=== PATIENT | female | born 1990 | race Caucasian/White ===

== ENCOUNTER 2020-01-27 14:39 | Outpatient (CLI) | payer OTHER, SELFPAY ==
--- NOTE | 2020-02-02 17:53 | WPDHOLTEREM ---
Holter/Event Monitor Holter/Event Monitor Date of procedure: 02/02/20 Procedure Type: 48 hour Holter monitor Diagnosis: palpitations Indications: palpitations Image/Tracing Quality: Acceptable Finding: this is a 48 hour Holter monitor which the underlying rhythm was sinus with sinus arrhythmia with an average heart rate of 86 beats per minute minimum of 54 beats per minute occurring at 3:50 a.m. and a maximum of 132 beats per minute occurring at 7:16 a.m.. There is no ventricular ectopy noted throughout the study. Rare supraventricular ectopy noted with 1 atrial pair and 4 premature atrial contractions. There is no atrial fibrillation, atrial flutter, prolonged pauses or high-grade AV blocks identified. OH and QRS duration were within normal limits throughout the study. Review patient's symptom diary entries note at 3:45 p.m. pt complained of chest pain while walking to the car associated sinus rhythm without ectopy heart rate 91 beats per minute. 11:49 a.m. patient complained of increased heart rate socially of sinus rhythm heart rate 81 beats per minute without ectopy. 1229 patient complained of increased heart rate so she was sinus rhythm heart rate 85 beats per minute and 1:09 p.m. patient complained of increased heart rate associated 94 beats per minute all in association with a dental visit. As 6:38 p.m. patient complained of dizziness getting up from bed associated sinus rhythm heart rate 69 beats per minute without ectopy. Conclusion: unremarkable Holter monitor with underlying sinus rhythm and sinus arrhythmia with very rare supraventricular ectopy in the form of isolated premature atrial contractions, 1 atrial pair without atrial fibrillation, atrial flutter, prolonged pauses or high-grade AV blocks. Patient's symptoms correspond with sinus rhythm. Clinical correlation advised.
== END 2020-01-27 14:40 | disposition home or self-care (01) ==
PROVIDERS: PCP Family Medicine; Visit Provider Family Medicine
DX: R00.2 Palpitations (principal)
CPT/HCPCS: 93225; 93226

== ENCOUNTER 2020-02-24 14:24 | Outpatient (CLI) | payer OTHER, SELFPAY ==
--- NOTE | 2020-02-24 | ECHO_ITS ---
Patient Info Name: Liss Garsia Age: 29 years : 1990 Gender: Female Ht: 62 in Wt: 110 lbs BSA: 1.48 m2 HR: 71 bpm BP: 114 / 93 mmHg Heart Rhythm: Sinus Rhythm Technical Quality: Good Exam Date: 02/24/2020 2:48 PM Exam Location: [facility] Patient Status: Outpatient Admit Date: 02/24/2020 Staff Ordering Physician: Sunni, Drea Ramachandran MD Wheel Tuner: Josh Albright RDCS Attending Provider: Sunni, Drea Ramachandran MD Referring Physician: Sunni FIGUEROA; Exam Type: CA echo doppler color flow Study Info Indications R00.2 - Palpitations Complete two-dimensional, color flow and Doppler transthoracic echocardiogram is performed. History/Risk Factors Palpitations. Summary 1. Complete two-dimensional, color flow and Doppler transthoracic echocardiogram is performed. 2. Left ventricular systolic function is normal, estimated at 65-70%. 3. There is no increased left ventricular wall thickness. 4. The left ventricular diastolic function is normal. 5. There is no aortic valve stenosis. 6. There is no mitral valve regurgitation. 7. There is trace tricuspid valve regurgitation. 8. No pulmonary hypertension, estimated pulmonary arterial systolic pressure is 22 mmHg. 9. There is straightening of the anterior and posterior leaflets without prolapse. Left Ventricle Left ventricular chamber dimension is normal. Left ventricular systolic function is normal, estimated at 65-70%. There is no increased left ventricular wall thickness. The left ventricular diastolic function is normal. Right Ventricle Right ventricular chamber dimension is normal. Right ventricular systolic function is normal. Left Atria Left atrial chamber dimension is normal. Right Atria Right atrial chamber dimension is normal. Aortic Valve The aortic valve is trileaflet. There is no aortic valve stenosis. There is trace aortic valve regurgitation. Pulmonic Valve The pulmonic valve is not well visualized. Mitral Valve The mitral valve has normal leaflets. There is no mitral valve regurgitation. There is straightening of the anterior and posterior leaflets without prolapse. Tricuspid Valve The tricuspid valve leaflets are normal. There is trace tricuspid valve regurgitation. No pulmonary hypertension, estimated pulmonary arterial systolic pressure is 22 mmHg. Pericardium/Pleural The pericardium appears normal. There is no pericardial effusion. Inferior Vena Cava Normal inferior vena cava with >50% collapse upon inspiration consistent with normal right atrial pressure, 5 mmHg. Aorta The aortic root size at the sinus of Valsalva is normal. Left Ventricular Outflow Tract Name Value Normal LVOT 2D LVOT Diameter 1.8 cm LVOT Doppler LVOT Peak Gradient 5 mmHg LVOT Mean Gradient 3 mmHg LVOT VTI 21 cm LVOT VTI/AV VTI Ratio 0.8 LVOT Stroke Volume 54 ml LVOT CO 5.3 l/min LVOT CI
== END 2020-02-24 14:25 | disposition home or self-care (01) ==
PROVIDERS: PCP Family Medicine; Visit Provider Family Medicine
DX: R00.2 Palpitations (principal)
CPT/HCPCS: 93306

== ENCOUNTER 2020-06-17 14:28 | Emergency (ER) | payer OTHER, SELFPAY ==
[2020-06-17 15:10] VITALS: BP 145/92; PULSE 98; RESP 18; TEMP 36.9; O2SAT 96
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
== END 2020-06-17 16:45 | disposition home or self-care (01) ==
LOC: ANHED 16:50
PROVIDERS: Emergency Provider Emergency Medicine; PCP Family Medicine
DX: R51.9 Headache, unspecified (principal); V49.40XA Driver injured in collision with unspecified motor vehicles in traffic accident, initial encounter
CPT/HCPCS: 99282

== ENCOUNTER 2021-05-19 11:55 | Emergency (ER) | payer OTHER, SELFPAY ==
--- NOTE | ~2021-05-19 | CT_ITS ---
EXAMINATION: CT abdomen pelvis w con EXAM DATE: 05/19/2021 13:34 INDICATION: Right upper quadrant pain. TECHNIQUE: Spiral CT of the abdomen and pelvis was performed following intravenous injection of 100 m L Omnipaque 350. Axial, coronal and sagittal images of the abdomen and pelvis were reviewed. The do se-length product (DLP) for this examination was 178.93 mGy-cm. The exposure was tailored according to patient size (auto mA exposure control), and iterative reconstruction (ASIR) was used as additiona l dose reduction technique. There is no prior study for comparison. FINDINGS: The liver, spleen, adrenal glands and pancreas are unremarkable. Gallbladder is unremarkab le. No biliary obstruction. There is severe right-sided hydronephrosis with renal cortical thinning . There is moderate left-sided hydronephrosis. No evidence of genitourinary calcifications. 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 The uterus is anteverted and mor phologically normal. There is 2.5 cm right ovarian cystic lesion likely the dominant follicle. The b ladder is unremarkable. There is no retroperitoneal or pelvic lymphadenopathy. Appendix positively identified, indicated on axial image 106, normal. The stomach and small bowel ar e unremarkable. There is moderate amount of colonic stool. No free intraperitoneal gas. The hear t is normal in size. There are no pericardial or pleural effusions. The lung bases are unremarkable . There are no osteoblastic or osteolytic lesions identified. IMPRESSION: 1. 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 consult. 2. Small right ovarian lesion most likely physiologic follicle. 3. Unremarkable appendix and gallbladder. Reviewed, dictated and finalized at location A. IMPRESSION: 1. Severe right, moderate left hydronephrosis probably bilateral congenital pa rtial UPJ obstructions. consult. 2. Small right ovarian lesion most likely physiologic follicle. 3. Unremarkable appendix and gallbladder.
[2021-05-19 12:06] VITALS: BP 126/81; PULSE 94; RESP 18; TEMP 36.7; O2SAT 100
[2021-05-19 12:21] LABS: Basophils Percent Auto 0.7 % (0.2-1.2); Eosinophils Absolute Auto 0.1 K/mm3 (0-0.3); Hematocrit 43.2 % (37.0-47.0); Hemoglobin 14.6 g/dL (12.0-15.0); Immature Granulocyte Absolute 0.01 K/mm3 (0.00-0.031); Immature Granulocyte Percent A 0.2 % (0-0.5); Lymphocytes Absolute Auto 1.67 K/mm3 (0.9-3.2); Lymphocytes Percent Auto 27.3 % (18.3-44.2); Mean Corpuscular HGB Conc 33.8 g/dl (32-36); Mean Corpuscular Hemoglobin 30.9 pg (26-34); Mean Corpuscular Volume 91.5 fl (80-100); Mean Platelet Volume 10.6 fl (7.4-10.4); Monocytes Absolute Auto 0.3 K/mm3 (0.1-0.6); Monocytes Percent Auto 4.4 % (2.6-8.5); Neutrophils Absolute Auto 4.1 K/mm3 (1.3-6.7); Neutrophils Percent Auto 66.4 % (45.5-73.1); Platelet Count Result 244 k/mm3 (150-375); Red Blood Count 4.72 M/mm3 (4.2-5.4); White Blood Count 6.1 K/mm3 (4.5-10.0)
--- NOTE | 2021-05-19 12:23 | ED.ABDPAIN ---
HPI - Abdominal Pain General Chief Complaint: Abdominal Pain Stated Complaint: abd pain Time Seen by Provider: 05/19/21 12:18 Source: patient and RN notes reviewed Mode of arrival: ambulatory Limitations: no limitations History of Present Illness HPI narrative: Patient is 30 years old white female presented to the ED with sudden onset of right abdominal pain, tightness intermittent since activities coordinator. Patient been having similar symptoms over the last 11 years but is getting worse over the last 2 weeks, mainly today. Patient denies any fever, chills, nausea, vomiting, diarrhea, constipation, urinary symptoms, vaginal bleeding or discharge. Related Data Allergies Allergy/AdvReac Type Severity Reaction Status Date / Time venom-wasp Allergy Anaphylaxis Verified 05/19/21 12:45 Review of Systems Review of Systems: CONSTITUTIONAL: Denies fever, chills, or sweats. EYES: Denies visual changes, redness, or discharge. ENT: Denies rhinorrhea, congestion, sore throat, or otalgia. CARDIOVASCULAR: Denies chest pain, palpitations, or edema. RESPIRATORY: Denies cough or dyspnea. GASTROINTESTINAL: Denies abdominal pain, nausea, vomiting, or diarrhea. GENITOURINARY: Denies dysuria or hematuria. SKIN: Denies rash or itching. MUSCULOSKELETAL: Denies back pain, joint pain, or myalgia. NEUROLOGIC: Denies headache, numbness, or weakness. PSYCHIATRIC: Denies anxiety or depression. PMFSH Social History Social History Smoking status: Never smoker Exam Narrative: General appearance: Well-developed, well-nourished Skin: Normal color Head: Normocephalic, nontraumatic Eyes: Clear conjunctiva ENT: Oropharynx normal, ears normal, nose normal Neck: Supple, nontender Chest and respiratory: Airway patent, no respiratory distress, no accessory muscle use Heart: Regular rate/rhythm Abdomen: Soft, nontender, no organomegaly, quiet bowel sounds Vascular: Normal peripheral pulses, normal capillary refill. 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 Kenia Medrano likely have chronic bilateral obstruction, patient needs renal scan as outpatient, call the office Saturday for appointment Date: 05/19/21 Time: 14:51 Vital Signs Vital signs: Vital Signs Temperature 36.7 C 05/19/21 12:06 Pulse Rate 94 05/19/21 12:06 Respiratory Rate 18 05/19/21 12:06 Blood Pressure 126/81 05/19/21 12:06 Pulse Oximetry 100 05/19/21 12:06 Temperature 36.3 C L 05/19/21 13:00 Pulse Rate 72 05/19/21 13:00 Respiratory Rate 16 05/19/21 13:00 Blood Pressure 120/68 05/19/21 13:00 Pulse Oximetry 100 05/19/21 13:00 MDM - Abdominal Pain Lab Data Result diagrams: 05/19/21 12:09 05/19/21 12:09 Labs: Lab Results 05/19/21 05/19/21 05/19/21 Range/Units 12:09 12:09 12:14 WBC 6.1 (4.5-10.0) K/mm3 RBC 4.72 (4.2-5.4) M/mm3 Hgb 14.6 (12.0-15.0) g/dL Hct 43.2 (37.0-47.0) % MCV 91.5 (80-100) fl MCH 30.9 (26-34) pg MCHC 33.8 (32-36) g/dl RDW 12.0 (11.5-14.5) % Plt Count 244 (150-375) k/mm3 MPV 10.6 H (7.4-10.4) fl Immature Gran % (Auto) 0.2 (0-0.5) % Neut % (Auto) 66.4 (45.5-73.1) % Lymph % (Auto) 27.3 (18.3-44.2) % Robeson % (Auto) 4.4 (2.6-8.5) % Eos % (Auto) 1.0 (0-4.4) % Baso % (Auto) 0.7 (0.2-1.2) % Lymph # (Auto) 1.67 (0.9-3.2) K/mm3 Robeson # (Auto) 0.3 (0.1-0.6) K/mm3 Eos # (Auto) 0.1 (0-0.3) K/mm3 Baso # (Auto) 0.0 (0.0-0.1) K/mm3 Abs Immat Gran (aut
[2021-05-19 12:26] LABS: Add Urine Microscopic? YES; Appearance Urine Cloudy (Clear); Bacteria Urine Trace /hpf; Bilirubin Urine Negative (Negative); Blood Urine 1+ (Negative); Color Urine Yellow (Yellow); Glucose Urine UA Negative (Negative); Ketones Urine Negative (Negative); Leukocyte Esterase Ur Trace LEU/UL (Negative); Mucus Urine Rare /lpf; Nitrate Urine Negative (Negative); Protein Urine Negative (Negative); Specific Grav Ur 1.017 (1.001-1.035); Squamous Epithelial Cell Urine Rare /hpf (Few); Urobilinogen Urine Negative mg/dL (<2.0); WBC Urine 0-3 /hpf
[2021-05-19 12:31] LABS: Alanine Aminotransferase 14 U/L (4-35); Albumin Level 4.4 g/dL (3.5-5.1); Alkaline Phosphatase 73 U/L (38-126); Anion Gap 7 mmol/L (8-16); Aspartate Amino Transferase 22 U/L (14-36); Bilirubin,Total 0.3 mg/dL (0.2-1.3); Blood Urea Nitrogen 11 mg/dL (7-17); Calcium 9.2 mg/dL (8.4-10.2); Carbon Dioxide 26 mmol/L (22-30); Chloride 105 mmol/L (98-107); Estimated CRCL calculation 81 ml/min; Estimated Glomerular Filt Rate > 60; Glucose 88 mg/dL (65-110); Lipase 51 U/L (23-300); Potassium 3.6 mmol/L (3.4-5.0); Sodium 138 mmol/L (137-145)
--- NOTE | 2021-05-19 12:50 | PC.NURSE ---
pt refused IV medications. Pt denies any pain or nausea, reports eating and drink good and does not feel she needs this medications
[2021-05-19 13:00] VITALS: BP 120/68; PULSE 72; RESP 16; TEMP 36.3; O2SAT 100
[2021-05-19 14:00] VITALS: BP 118/74; PULSE 72; RESP 16; TEMP 36.3; O2SAT 98
[2021-05-19 14:54] VITALS: BP 118/68; PULSE 70; RESP 16; TEMP 36.3; O2SAT 100
== END 2021-05-19 15:15 | disposition home or self-care (01) ==
PROVIDERS: Emergency Medicine; Emergency Provider Emergency Medicine; PCP Family Medicine
DX: Q62.0 Congenital hydronephrosis (principal); N83.9 Noninflammatory disorder of ovary, fallopian tube and broad ligament, unspecified
CPT/HCPCS: 36415; 74177; 80053; 81001; 81025; 83690; 85025; 99284; Q9967

== ENCOUNTER 2021-05-31 13:21 | Outpatient (CLI) | payer OTHER, SELFPAY ==
--- NOTE | ~2021-05-31 | NM_ITS ---
EXAMINATION: LUIS carbajal renal scan DATE: 05/31/2021 14:40 INDICATION: Bilateral hydronephrosis. TECHNIQUE: 8 mCi Tc-99m MAG3 was administered IV. 40 mg furosemide was administered IV immediately a fterward. The patient was scanned in the supine position. A posterior abdominal radionuclide angiogra m was obtained. A subsequent time course of static images of the kidneys, ureters, and bladder was ob tained. COMPARISON: None FINDINGS: The posterior abdominal radionuclide angiogram and sequential static images show normal size, positio n, and morphology of the left kidney. The right kidney is small.. Peak renal parenchymal uptake was 3 .5 min in left kidney and >30 min in right kidney (normal peak 3-5 minutes). The relative early sharri l uptake was 84% on the left and 16% on the right (<40% is abnormal). No abnormalities of the ureter s or bladder are seen. T1/2 for clearance of activity from the left kidney and proximal collecting system was 8 minutes. T1/2 for clearance of activity from the right kidney and proximal collecting system was indeterminate with continually rising activity curves throughout the 30 minutes of imaging. Notes on interpretation: T1/2 <10 minutes is normal, 10-15 minutes is low grade obstruction of questi onable clinical significance, 15-20 minutes is partial obstruction that is likely clinically signific ant, >20 minutes is high grade obstruction. Note that false positives may be seen with supine positio tobi, dehydration, severely dilated nonobstructed kidney, atonic collecting system, poor renal functi on, and chronic furosemide use. IMPRESSION: 1. Markedly delayed activity clearance from the small right kidney with hydronephrosis consistent wi th high-grade obstruction. This likely chronic given the significant renal parenchymal atrophy seen o n the prior CT with severe asymmetric decreased relative renal function the right kidney contributing only 16% of total renal function. 2. Normal clearance from the left kidney with no significant obstruction. Reviewed, dictated and finalized at location A. IMPRESSION: 1. Markedly delayed activity clearance from the small right kidney with hydron ephrosis consistent with high-grade obstruction. This likely chronic given the significant renal parenchymal atrophy seen on the prior CT with severe asymmetr ic decreased relative renal function the right kidney contributing only 16% of total renal function. 2. Normal clearance from the left kidney with no significant obstruction.
== END 2021-05-31 13:22 | disposition home or self-care (01) ==
LOC: ANHIMG 13:28
PROVIDERS: PCP Family Medicine; Visit Provider Nurse Practitioner Adult Health
DX: N13.30 Unspecified hydronephrosis (principal)
CPT/HCPCS: 78708; A9562; J1940

== ENCOUNTER 2021-06-06 00:53 | Day surgery (SDC) | payer OTHER, SELFPAY ==
[2021-06-01 11:36] VITALS: BMI 21.0
--- NOTE | 2021-06-01 11:48 | PC.NURSE ---
Report to the Outpatient Waiting Room, entrance under the green pavilion located off [facility], at time 0800 on date 06/06/21. OR Time: 1000. - You and your visitor will be asked a series of questions to screen for COVID 19 for your protection. - A mask is required within the hospital. One visitor will be allowed to accompany the patient into the hospital. Patients visitor will be instructed to remain with patient at all times or leave the building. We will allow the visitor to come back to the postoperative area when patient is ready. Preoperative COVID Testing Requirements: No COVID Test needed if: (proof is required; if not received patient will have Rapid Test prior to entry) - Patient has received COVID Vaccine at least 14 days prior to procedure date or - Patient has positive COVID test result within last 90 days of surgery date. COVID Test needed if above criteria is not met Patients may have clear liquids (water, carbonated beverages, clear teas, apple juice) until 3 hours prior to surgery with a maximum of 20 ounces. - No food from midnight until time of surgery - Infants may have breast milk until 4 hours before surgery, formula 6 hours prior to surgery. - Children will be allowed to drink immediately following surgery. If applicable, please bring a bottle or sippy cup to assist with drinking. Juice, water, soda, and popsicles are readily available. For infants on formula, please bring formula the day of surgery. Pacifiers are allowed. Take the following medications with a SIP of water the morning of surgery: PAIN PILL (IF NEEDED) Medications to discontinue per physician: VITAMINS/SUPPLEMENTS Date to take last dose: 06/02/21 Please no make-up, nail bengali, hairspray, perfume, deodorant, or body powder the day of surgery. No jewelry (including any body piercings) or valuables the day of surgery, leave them at home. Please take a shower or bath the night before, or the morning of, surgery with an antibacterial soap. Wear comfortable, loose fitting clothing. - Jewelry must be removed prior to entering the operating room. Rings and piercings that are not removed may be cut off. - The hospital will not accept responsibility for valuables. - Please leave all valuables, including medications, at home the day of surgery. If you are going home after surgery, a licensed drop hammer pile driver operator must drive you home. - NO public transportation without another adult. - We recommend that an adult stay with you for 24 hours following discharge. - We also recommend that you do not drive, make important decision, drink alcoholic beverages, or take any drugs that were not prescribed by your health care provider for at least 24 hours after your discharge time. Follow any additional instructions given to you from your surgeon. Telephone instructions given to LESLEY MELGAR and asked if any additional questions and then verbalized understanding. Patient advised to call surgeon office or pre surgery nurse liaison [phone] if any additional questions.
[2021-06-06] VITALS (8 sets, daily range): BP systolic 98–135; BP diastolic 60–96; PULSE 80–101; RESP 15–19; TEMP 36.8–36.9; O2SAT 98–100
--- NOTE | ~2021-06-06 | XR_ITS ---
EXAMINATION: XR retrograde pyelo w/stent BI DATE: 06/06/2021 10:56 INDICATION: Bilateral retrograde pyelograms and right ureteral stent placement. TECHNIQUE: 4 fluoroscopic images of the abdomen and pelvis were obtained during procedure performed b andree Aquino. Radiologist was not present for the imaging or procedure. The amount of fluoroscopy t fredis used during this procedure was 1.6 minutes. COMPARISON: None. FINDINGS: Retrograde contrast injections into the left ureter demonstrates moderate left hydronephrosis along w ith an approximately 4 cm stricture along the proximal left ureter with smooth mucosal margins. Subse quent images demonstrate severe right hydronephrosis with likely UPJ obstruction. Final images demons trate placement of a left internal ureteral stent with loops formed in the dilated right renal pelvis and in the bladder. IMPRESSION: 1. Severe right hydronephrosis likely due to UPJ obstruction with placement of a right internal urete ral stent in expected position. 2. Moderate left hydronephrosis with significant stricture along the proximal left ureter. Reviewed, dictated and finalized at location B. IMPRESSION: 1. Severe right hydronephrosis likely due to UPJ obstruction with placement of a right internal ureteral stent in expected position. 2. Moderate left hydronephrosis with significant stricture along the proximal l eft ureter.
--- NOTE | 2021-06-06 07:53 | WPDANESEPPF ---
Anes - Initial Pre Proc Eval Procedure: Operation Date: 06/06/21 10:00 Proposed Procedures p Cystoscopy, Bilateral Retrograde Pyelograms, Right Stent Placement, Diagnostic Ureteroscopy - Venkata Aquino MD Date/Time: 06/06/21 07:53 Surgeon: Venkata Aquino MD Pre Op Diagnosis: Gautam Hydronephrosis Patient Data Age: 30 Gender: F Height: 1.57 m Weight: 52.16 kg Allergies Allergy/AdvReac Type Severity Reaction Status Date / Time venom-wasp Allergy Severe Anaphylaxis Verified 06/06/21 08:12 Home Medications Medication Instructions Recorded Confirmed Type tramadol 50 mg PO Q4H PRN #30 tablet 05/19/21 06/06/21 Rx cholecalciferol (vitamin D3) 50 mcg PO DAILY 06/01/21 06/06/21 History [Vitamin D3] multivitamin 1 tablet PO DAILY 06/01/21 06/06/21 History norgestimate-ethinyl estradiol 1 tablet PO DAILY 06/01/21 06/06/21 History [Tri-Estarylla] vitamin B complex 1 tablet PO DAILY 06/01/21 06/06/21 History Patient hx anesthesia problems: none Family hx anesthesia problems: none Results Review: All pre-operative results and documents have been reviewed as part of the pre-operative evaluation. [facility] Past Medical History Medical History (Updated 06/06/21 @ 07:54 by Clinton Quinn MD) Hypothyroidism Social History Social History Smoking status: Never smoker Alcohol intake: never Substance use: current Substance use type: marijuana Living arrangements: alone Spiritual care concerns: No Anes - Eval Final PreProcedure Day of Procedure 06/06/21 07:53 Patient weight: normal Heart: regular rate and rhythm Lungs: clear to auscultation and normal air movement Airway: Mallampati scale class II Neurological: alert and oriented Last oral intake: >/= 8 hours ASA classification: II Emergent: no Anesthetic plan: proceed Anesthesia type and monitoring: general LMA Results Review: All pre-operative results and documents have been reviewed as part of the pre-operative evaluation. Informed Consent: The patient's anesthetic plan and its attendant risks and benefits were discussed with the patient/family/POA. Questions were solicited and answers provided to the satisfaction of the patient/family/POA.
[2021-06-06] MEDS: LACTATED RINGERS 1,000 ML 30 ML IV CONT (08:39)
--- NOTE | 2021-06-06 09:47 | WPDHPUPDATE1 ---
History and Physical Update Update Date/Time: 06/06/21 09:47 History and Physical has been reviewed, including an updated exam of the patient. There are NO changes in the patient's condition. Risks, benefits, and alternatives have been discussed and questions answered. Patient agrees to proceed with procedure. Proceed with cystoscopy, bilateral retrogrades, right ureteral stent placement
[2021-06-06] MEDS: ceFAZolin 2 GM/D5W 50 ML 2 GM/50 ML BAG IVPB (10:10)
--- NOTE | 2021-06-06 10:52 | P.OP_ITS ---
Procedure Note - Detailed Date of Procedure 06/06/21 Pre-op Diagnosis Gautam Hydronephrosis Post-op Diagnosis Same Procedure Performed Cystoscopy, bilateral retrograde pyelograms, right ureteral stent placement 4.8 Sammarinese contour Surgeon Venkata Aquino MD Anesthesia General Findings Some mild narrowing along the proximal left ureter, right UPJ obstruction, Description of Procedure Patient is taken to the operative suite and correctly identified. Once anes thesia was obtained patient was prepped draped usual sterile fashion. Twenty- two Sammarinese scope was inserted in the bladder. There were no tumors noted. Left orifice was cannulated with a [place] and a pyelogram was performed. Contrast made its way up easily to left renal pelvis. There is a segment of what appears to be some narrowing in the proximal ureter for approximately 3 cm. This does not have the classic appearance of a UPJ. Renal scan shows good drainage from that kidney. Right retrograde pyelogram was then performed. This does have the appearance of a classic UPJ. The collecting system was extremely dilated. We needed to manipulated an angled Glidewire up into the renal pelvis and advanced the [place]. Superstiff guidewire was then placed. We were unable to place a 6 Sammarinese contour stent due to the tightness. We thus placed a 4.8 Sammarinese contour stent with the proximal end coiled in the renal pelvis and the distal end in the bladder. 2% viscous lidocaine was inserted urethra patient is taken recovery room stable condition. Will plan on renal scan in 6-8 weeks to see if function has improved in the right kidney. Drains Yes Packing No Pathology None sent Complications No immediate complications Condition Stable Disposition PACU
[2021-06-06] MEDS: oxyCODONE HCL (*CRX) 5 MG TAB IR PO (12:09)
== END 2021-06-06 12:50 | disposition home or self-care (01) ==
PROVIDERS: PCP Family Medicine; Visit Provider Urology
PROC: (CPT 52352; principal; 2021-06-06 10:00)
DX: N13.1 Hydronephrosis with ureteral stricture, not elsewhere classified (principal); E03.9 Hypothyroidism, unspecified; F12.90 Cannabis use, unspecified, uncomplicated
CPT/HCPCS: 52332; 52005; 74420; A9270; C1758; C1769; C2617; J0690; J1100; J2250; J2405; J2704; J3010; J7120; Q9966

== ENCOUNTER 2021-08-02 12:24 | Outpatient (CLI) | payer OTHER, SELFPAY ==
--- NOTE | ~2021-08-02 | NM_ITS ---
EXAMINATION: LUIS carbajal renal scan DATE: 08/02/2021 14:15 INDICATION: Bilateral hydronephrosis TECHNIQUE: 8 mCi Tc-99m MAG3 was administered IV. 40 mg furosemide was administered IV immediately a fterward. The patient was scanned in the supine position. A posterior abdominal radionuclide angiogra m was obtained. A subsequent time course of static images of the kidneys, ureters, and bladder was ob tained. COMPARISON: None FINDINGS: The posterior abdominal radionuclide angiogram and sequential static images show normal size, positio n, and morphology of the left kidney. The right kidney is small. Peak renal parenchymal uptake was 1. 9 min in left kidney and 10.5 min in right kidney (normal peak 3-5 minutes). The relative early sharri l uptake was 86% on the left and 14% on the right (<40% is abnormal). No abnormalities of the ureter s or bladder are seen. T1/2 for clearance of activity from the left kidney and proximal collecting system was 10.6 minutes. T1/2 for clearance of activity from the right kidney and proximal collecting system was 26.3 minutes. Notes on interpretation: T1/2 <10 minutes is normal, 10-15 minutes is low grade obstruction of questi onable clinical significance, 15-20 minutes is partial obstruction that is likely clinically signific ant, >20 minutes is high grade obstruction. Note that false positives may be seen with supine positio tobi, dehydration, severely dilated nonobstructed kidney, atonic collecting system, poor renal functi on, and chronic furosemide use. IMPRESSION: 1. Persistent severely decreased activity clearance from the small right kidney which contributes on ly 14% to total renal function. This could be due to persistent high-grade obstruction, dilated atoni c collecting system, poor renal function or some combination thereof. 2. Minimally delayed left renal activity clearance consistent with low grade obstruction of question able clinical significance. Reviewed, dictated and finalized at location B. IMPRESSION: 1. Persistent severely decreased activity clearance from the small right kidne y which contributes only 14% to total renal function. This could be due to pers istent high-grade obstruction, dilated atonic collecting system, poor renal fun ction or some combination thereof. 2. Minimally delayed left renal activity clearance consistent with low grade o bstruction of questionable clinical significance.
== END 2021-08-02 12:25 | disposition home or self-care (01) ==
PROVIDERS: PCP Family Medicine; Visit Provider Urology
DX: N13.30 Unspecified hydronephrosis (principal)
CPT/HCPCS: 78708; A9562

== ENCOUNTER 2022-04-06 06:45 | Outpatient (CLI) | payer OTHER, SELFPAY | END 2022-04-06 06:46 | disposition home or self-care (01) | PROVIDERS: PCP Family Medicine; Visit Provider Internal Medicine Endocrinology, Diabetes & Metabolism | DX: R94.8 Abnormal results of function studies of other organs and systems (principal) | CPT/HCPCS: 36415; 82533; 96372; J0834 ==

== ENCOUNTER 2022-04-17 14:15 | Emergency (ER) | payer OTHER, SELFPAY ==
--- NOTE | ~2022-04-17 | CT_ITS ---
EXAMINATION: CT abdomen pelvis w con DATE: 04/17/2022 17:05 INDICATION: right side abdominal pain TECHNIQUE: Computed tomography (CT) of the abdomen and pelvis was performed with 100 mL Omnipaque-350 intravenous contrast. Automated exposure control and iterative reconstruction technique were employe d. The dose-length product was 199.96 mGy-cm. COMPARISON: None. FINDINGS: Lower thorax: Unremarkable Liver: Normal. Biliary/Gallbladder: Gallbladder is normal. No bile duct dilation. Pancreas: No mass or duct dilation. Spleen: Normal. Adrenals:No mass. Kidneys: No suspicious mass. Nonobstructing left midpole calcification. Moderate left and severe righ t pelvicaliectasis, unchanged. Right renal cortical thinning. GI tract: Distal esophageal and gastric wall edema. No small or large bowel dilation. Normal appendix . Mesentery/Peritoneum: No ascites, mass, or free air. Retroperitoneum: No mass. Pelvis: Pelvic organs are within normal limits. Soft Tissues: Soft tissues and body wall unremarkable. Bones: No acute osseous finding. IMPRESSION: Esophagitis/gastritis. Otherwise no acute abdominopelvic process detected. 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 Reviewed, dictated and finalized at location K. SCRUBBER OPERATOR IMPRESSION: Esophagitis/gastritis. Otherwise no acute abdominopelvic process detected. 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
[2022-04-17 14:17] VITALS: BP 154/104; PULSE 93; RESP 18; TEMP 36.7; O2SAT 100
[2022-04-17 14:35] LABS: Basophils Absolute Auto 0.1 K/mm3 (0.0-0.1); Basophils Percent Auto 0.7 % (0.2-1.2); Eosinophils Absolute Auto 0.2 K/mm3 (0-0.3); Eosinophils Percent Auto 2.6 % (0-4.4); Hematocrit 44.8 % (37.0-47.0); Hemoglobin 15.3 g/dL (12.0-15.0); Immature Granulocyte Absolute 0.02 K/mm3 (0.00-0.031); Immature Granulocyte Percent A 0.3 % (0-0.5); Lymphocytes Absolute Auto 2.15 K/mm3 (0.9-3.2); Lymphocytes Percent Auto 30.8 % (18.3-44.2); Mean Corpuscular HGB Conc 34.2 g/dl (32-36); Mean Corpuscular Hemoglobin 30.8 pg (26-34); Mean Corpuscular Volume 90.3 fl (80-100); Monocytes Absolute Auto 0.5 K/mm3 (0.1-0.6); Monocytes Percent Auto 6.6 % (2.6-8.5); Neutrophils Absolute Auto 4.1 K/mm3 (1.3-6.7); Platelet Count Result 256 k/mm3 (150-375); Red Blood Count 4.96 M/mm3 (4.2-5.4); Red Cell Distribution Width 11.9 % (11.5-14.5)
[2022-04-17 14:46] LABS: Alanine Aminotransferase 24 U/L (6-35); Albumin Level 4.6 g/dL (3.5-5.1); Alkaline Phosphatase 78 U/L (38-126); Anion Gap 6 mmol/L (8-16); Aspartate Amino Transferase 29 U/L (14-36); Bilirubin,Total 0.4 mg/dL (0.2-1.3); Blood Urea Nitrogen 11 mg/dL (7-17); Calcium 9.4 mg/dL (8.4-10.2); Carbon Dioxide 29 mmol/L (22-30); Chloride 102 mmol/L (98-107); Estimated CRCL calculation 80 ml/min; Estimated Glomerular Filt Rate > 60; Glucose 90 mg/dL (65-110); Lipase 53 U/L (23-300); Potassium 4.3 mmol/L (3.4-5.0); Sodium 137 mmol/L (137-145)
[2022-04-17 14:57] LABS: Appearance Urine Cloudy (Clear); Bacteria Urine Rare /hpf; Bilirubin Urine Negative (Negative); Blood Urine Negative (Negative); Color Urine Yellow (Yellow); Glucose Urine UA Negative (Negative); Ketones Urine Negative (Negative); Leukocyte Esterase Ur Trace LEU/UL (Negative); Nitrate Urine Negative (Negative); Non Pathogenic Casts 0-2; Protein Urine Negative (Negative); RBC Urine 0-2 /hpf (0-2); Specific Grav Ur 1.008 (1.001-1.035); Squamous Epithelial Cell Urine Occasional /hpf (Few); Urobilinogen Urine 0.2 mg/dL (<2.0); WBC Urine 0-5 /hpf; pH Urine 7.5 (5.0-9.0)
[2022-04-17 15:01] LABS: Add Urine Microscopic? YES
[2022-04-17 15:42] VITALS: BP 125/84; PULSE 106; RESP 16; O2SAT 100
--- NOTE | 2022-04-17 17:15 | ED.ABDPAIN ---
HPI - Abdominal Pain General Chief Complaint: Abdominal Pain Stated Complaint: abdominal pain three weeks Time Seen by Provider: 04/17/22 16:07 Source: patient and RN notes reviewed Mode of arrival: ambulatory Limitations: no limitations History of Present Illness HPI narrative: This is a 31 year old female with history of chronic hydronephrosis who presents for evaluation right flank pain. She was diagnosed with severe right side hydronephrosis and moderate left side hydronephrosis last year after suffering from right flank pain for years. She is currently under the care of a urologist at [facility]. She states they tried ureter stent but she reports it did not improve her pain so it was removed. They have recommended right nephrectomy but she is getting a second opinion at [facility]. She has continued to have worsening right flank pain over the past 3 weeks. She states she called her urologist who told her to continue to manage her pain and they she needs to have nephrectomy. She is currently being evaluated by her primary care provider as well over the past 3 weeks. She has had outpatient retroperitoneal US that shows continued progression of her hydronephrosis. She was started on cipro 4 days ago for possible pyelonephritis but her pain continues to worsen. She has nausea after starting cipro. She denies fever, chills, or vomiting. She has noticed mild right upper quadrant tenderness so she wants evaluated for other causes of her pain. She would like repeat CT to assess progression of her hydronephrosis. Related Data Home Medications Medication Instructions Recorded Confirmed multivitamin 1 tablet PO DAILY 06/01/21 06/06/21 vitamin B complex 1 tablet PO DAILY 06/01/21 06/06/21 ciprofloxacin HCl 500 mg tablet 500 mg PO Q12H 04/17/22 Allergies Allergy/AdvReac Type Severity Reaction Status Date / Time venom-wasp Allergy Severe Anaphylaxis Verified 04/17/22 15:39 Review of Systems Constitutional: Constitutional: Denies weakness Cardiovascular: Cardiovascular: Denies syncope, Denies rapid heart rate, Denies irregular heart rhythm, Denies leg edema and Denies dyspnea Respiratory: Respiratory: Denies chest congestion, Denies hemoptysis, Denies excessive phlegm production and Denies dyspnea Gastrointestinal: Gastrointestinal: Denies abdominal pain, Denies hematochezia, Denies diarrhea and Denies vomiting Genitourinary: Genitourinary: Denies hematuria, Denies dysuria and Reports flank pain Musculoskeletal: Musculoskeletal: Denies joint swelling, Denies loss of height and Denies muscle weakness Neurologic: Denies syncope, Denies focal weakness and Denies weakness PMFSH Past Medical History Medical History (Updated 04/17/22 @ 17:41 by Elena Jasmine MD) Bilateral hydronephrosis Hypothyroidism Surgical History Surgical History (Updated 04/17/22 @ 17:22 by Elena Jasmine MD) History of ureter stent Social History Social History Smoking status: Never smoker Alcohol intake: never Substance use: current Substance use type: marijuana Living arrangements: alone Spiritual care concerns: No Exam Const: General: no acute distress and alert Nutritional Appearance: well nourished Orientation/consciousness: patient oriented x3 Limitations: no limitations HENMT: Head: normal to inspection Eyes: Conjunctivae: conjunctivae normal EOM: EOMs intact bilaterally Resp: Effort & Inspection: normal respiratory effort Auscultation: clear to auscultation bilaterally Cardio: Rate: regular rate Rhythm: regular rhythm Heart sounds: no murmurs GI: GI Palp: Yes Soft to palpation, No Tenderness to palpation present (GI), No Guarding due to palpation present (GI), No Rigid due to palpation and No Hernia present Auscultation: normal bowel sounds : General: Yes no CVA tenderness Skin: General skin exam: normal color Rashes: no rashes Wounds: no woun
--- NOTE | 2022-04-25 13:49 | PC.NURSE ---
late entry 04/17/22 1701 offirmev infused
== END 2022-04-17 23:38 | disposition home or self-care (01) ==
PROVIDERS: Emergency Medicine; Emergency Provider General Practice; PCP Family Medicine
DX: Q62.0 Congenital hydronephrosis (principal); K29.70 Gastritis, unspecified, without bleeding; E03.9 Hypothyroidism, unspecified
CPT/HCPCS: 36415; 74177; 80053; 81001; 81025; 83690; 85025; 87086; 87088; 96374; 99284; J0131; Q9967

== ENCOUNTER 2023-12-07 12:21 | Emergency (ER) | payer OTHER, SELFPAY ==
--- NOTE | ~2023-12-07 | XR_ITS ---
EXAMINATION: XR toe 4th LT min 2V DATE: 12/07/2023 12:49 INDICATION: Left fourth toe injury. TECHNIQUE: 4 views of left fourth toe were obtained. COMPARISON: None. FINDINGS: There is a comminuted extra-articular fracture of fourth proximal phalanx. The main distal fracture fragment demonstrates near-anatomic alignment. Joint spaces are normal. IMPRESSION: 1. Comminuted extra-articular fracture of fourth proximal phalanx. Reviewed, dictated and finalized at location A.
--- NOTE | 2023-12-07 12:23 | ED_ITS ---
HPI - Extremity Injury (Lower) General Chief Complaint: Extremity Injury, Lower Stated Complaint: Injured Toe Left Foot Time Seen by Provider: 12/07/23 12:23 Source: patient, RN notes reviewed and old records reviewed Mode of arrival: ambulatory Limitations: no limitations History of Present Illness HPI Narrative: 33-year-old female to [facility] with complaint of right 4th toe pain. Patient reports approximately 1.5 hours prior to arrival she struck it on bed post. Patient has been treating at home with ice and elevation. Patient wanted to be seen to rule out fracture. Patient resting in exam room in no acute distress; appears in mild pain. Related Data Home Medications Medication Instructions Recorded Confirmed multivitamin 1 tablet PO DAILY 06/01/21 12/07/23 vitamin B complex 1 tablet PO DAILY 06/01/21 12/07/23 Allergies Allergy/AdvReac Type Severity Reaction Status Date / Time venom-wasp Allergy Severe Anaphylaxis Verified 12/07/23 12:44 NSAIDS (Non-Steroidal AdvReac Other Verified 12/07/23 12:44 Anti-Inflamma Review of Systems Review of Systems: All systems reviewed & are unremarkable except as noted in HPI and below Constitutional: Constitutional: Reports no additional constitutional complaints Eyes: Eyes: Reports no additional eye complaints ENT: Reports system reviewed and no additional complaints, except as documented Cardiovascular: Cardiovascular: Reports no additional cardiovascular complaints, Denies chest pain and Denies dyspnea Respiratory: Respiratory: Reports no additional respiratory complaints, Denies cough and Denies dyspnea Musculoskeletal: Musculoskeletal: Reports no additional musculoskeletal complaints Neurologic: Reports system reviewed and no additional complaints, except as documented Psychiatric: Psychiatric: Reports no additional psychiatric complaints [facility] Past Medical History Medical History (Updated 12/07/23 @ 13:33 by Aster Jimenez APRN) Bilateral hydronephrosis Hypothyroidism Surgical History Surgical History (Updated 04/17/22 @ 17:22 by Elena Jasmine MD) History of ureter stent Social History Social History Smoking status: Never smoker Alcohol intake: never Substance use: current Substance use type: marijuana Living arrangements: alone Spiritual care concerns: No Comments At the time of my signature, I reviewed and agree with the nursing past medical, surgical, social, and family history. There is no relevant family history pertinent to the patient complaint. Exam Const: General: cooperative, healthy appearing, comfortable, no acute distress, alert and well nourished Nutritional Appearance: well nourished Orientation/consciousness: patient oriented x3 Limitations: no limitations HENMT: Head: normal to inspection Ears: external ears normal Face/Nose/Sinus: Normal external nose present, Normal nares present, normal facial exam, No erythema and No edema Face and sinus: normal facial exam, no erythema and no edema Mouth: Yes Normal oral and palatal mucosa present Eyes: General: appearance normal, both eyes and all related structures Neck: Neck: normal visual inspection, full ROM and no meningeal signs Lymphatic: no lymphadenopathy noted and no lymphedema noted Chest: Chest palpation & inspection: normal inspection of the chest Resp: Effort & Inspection: normal respiratory effort and able to speak in complete sentences Auscultation: clear to auscultation bilaterally Cardio: Jugular venous distension: no JVD Rate: regular rate Rhythm: regular rhythm Back/Spine/Pelvis: Cervical Spine: cervical ROM normal Skin: General skin exam: normal color, no rashes or lesions noted and turgor normal Neuro: General: patient oriented x3, gait normal, moves all extremities and no meningeal signs Speech: normal speech Gait exam (Neuro): Normal gait present Extrem: General: normal to inspection, full ROM and capillary refill normal Psych: Appearance: grossly normal and well kempt Course Course Emergency Course: Some parts of this dictation were generated by voice recognition software and may contain typographical and/or grammatical inaccuracies. Level of Care: Express Care Visit Vital Signs Vital signs: Vital Signs Temperature 37.0 C 12/07/23 12:27 Pulse Rate 88 12/07/23 12:27 Respiratory Rate 16 12/07/23 12:27 Blood Pressure 113/74 12/07/23 12:27 Pulse Oximetry 99 12/07/23 12:27 Temperature 37.0 C 12/07/23 12:27 Pulse Rate 88 12/07/23 12:27 Respiratory Rate 16 12/07/23 12:27 Blood Pressure 113/74 12/07/23 12:27 Pulse Oximetry 99 12/07/23 12:27 reviewed MDM - Extremity Injury (Lower) MDM Narrative Medical decision making narrative: 33-year-old female to [facility] with complaint of right 4th toe pain. Patient reports approximately 1.5 hours prior to arrival she struck it on bed post. Patient has been treating at home with ice and elevation. Patient wanted to be seen to rule out fracture. Patient resting in exam room in no acute distr ess; appears in mild pain. On exam, 4th digit of right foot erythematous, edematous tender to touch. Mild ecchymosis noted proximal phalanx. Radiology report: Comminuted extra-articular fracture of fourth proximal phalanx. Patient is sitting in exam room nontoxic in appearance. Patient appropriate for outpatient treatment and follow-up. Discharge instructions reviewed with patient, as well as provided in writing per nursing staff. The instructions also include specific and strict return/GO TO THE ER as well as f/u information. All questions have been answered, and the patient deny any further questions with discharge and discharge plan. Some parts of this dictation were generated by voice recognition software and may contain typographical and/or grammatical inaccuracies. Differential Diagnosis Differential diagnosis: Likely ankle sprain and strain, acute internal derangement of knee, fracture of femur, fracture of hip, puncture wound of foot, fracture of toe and ankle fracture Imaging Data Radiologist's impression: EXAMINATION: XR toe 4th LT min 2V DATE: 12/07/2023 12:49 INDICATION: Left fourth toe injury. TECHNIQUE: 4 views of left fourth toe were obtained. COMPARISON: None. FINDINGS: There is a comminuted extra-articular fracture of fourth proximal phalanx. The main distal fracture fragment demonstrates near-anatomic alignment. Joint spaces are normal. IMPRESSION: 1. Comminuted extra-articular fracture of fourth proximal phalanx. Discharge Plan Discharge Clinical Impression: Fracture of right toe Patient Disposition: Home, Self-Care Condition: Stable Instructions: Toe Fracture (ED), P.R.I.C.E. Treatment (ED) Additional Instructions: please review attached instructions for claros treatment and toe fracture and implement suggestions as tolerated. Please use the attached referral information to follow up with Ortho next week Prescriptions: No Action multivitamin Tablet 1 tablet PO DAILY vitamin B complex Tablet 1 tablet PO DAILY omeprazole 20 mg capsule,delayed release(DR/EC) 20 mg PO DAILY Qty: 14 0RF Follow-up/Referrals: Colton Rojas MD [Physician] - Gunnar,Fatou Brooks APRN [Primary Care Provider] -
[2023-12-07 12:27] VITALS: BP 113/74; PULSE 88; RESP 16; TEMP 37; O2SAT 99
== END 2023-12-07 13:40 | disposition home or self-care (01) ==
PROVIDERS: Emergency Provider Nurse Practitioner Family; PCP Nurse Practitioner Family
DX: S92.512A Displaced fracture of proximal phalanx of left lesser toe(s), initial encounter for closed fracture (principal); W22.8XXA Striking against or struck by other objects, initial encounter; E03.9 Hypothyroidism, unspecified; Z96.0 Presence of urogenital implants
CPT/HCPCS: 73660; 99214; G0463